=== PATIENT | male | born 1970 | race Hispanic/Latino ===

== ENCOUNTER 2016-09-15 22:40 | Emergency (ER) | payer SELFPAY ==
[2016-09-15] MEDS ORDERED: HYDROcodone/Acetaminophen 10/325 mg Tablet ONE (23:28)
[2016-09-15] MEDS ORDERED: Sulfameth/Trimethoprim DS 800-160mg TAB ONE (23:29)
[2016-09-15] MEDS ORDERED: Naproxen 500 MG TAB ONE (23:29)
[2016-09-15] MEDS ORDERED: Cephalexin 500 MG CAP ONE (23:29)
== END 2016-09-15 23:55 | disposition home or self-care (01) ==
LOC: MADERS 22:40
DX: L02.219 Cutaneous abscess of trunk, unspecified (principal); E11.9 Type 2 diabetes mellitus without complications; E78.5 Hyperlipidemia, unspecified; E78.00 Pure hypercholesterolemia, unspecified; I10 Essential (primary) hypertension
CPT/HCPCS: 99283